=== PATIENT | female | born 1990 | race Hispanic/Latino ===

== ENCOUNTER 2017-07-09 13:01 | Emergency (ER) | payer MEDICAID, OTHER ==
[2017-07-09 13:26] VITALS: BP 110/78; PULSE 74; RESP 20; TEMP 99.2; O2SAT 99
[2017-07-09] MEDS ORDERED: Naproxen 550 mg Tab PO STA (13:33)
--- NOTE | 2017-07-09 13:35 | C.PDOC ---
History Of Present Illness 26 year old female presents to the ED c/o dental pain for the past week. Patient has not made a follow up appointment with the dentist. Patient denies injury, fall, trauma, fever, chills. Time Seen by Provider: 07/09/17 13:17 Chief Complaint (Nursing): Dental Pain History Per: Patient History/Exam Limitations: no limitations Onset/Duration Of Symptoms: Days Current Symptoms Are (Timing): Still Present Quality: Positive for: "Pain" Recent travel outside of the [place]: No Additional History Per: Patient Past Medical History Reviewed: Historical Data, Nursing Documentation, Vital Signs Vital Signs: Last Vital Signs Temp 99.2 F 07/09/17 13:24 Pulse 74 07/09/17 13:24 Resp 20 07/09/17 13:24 BP 110/78 07/09/17 13:24 Pulse Ox 99 07/09/17 13:50 - Medical History PMH: Asthma Denies: Migraine Surgical History: Appendectomy - [facility] Procedures MONITORING NOS (06/29/13) INJECT/INFUSE NEC (05/29/14) MANUAL ASSIST DELIV NEC (06/29/13) Family History: States: Unknown Family Hx - Social History Hx Alcohol Use: No Hx Substance Use: No Review Of Systems Except As Marked, All Systems Reviewed And Found Negative. ENT: Positive for: Mouth Pain. Negative for: Mouth Swelling Physical Exam - Physical Exam Appears: Non-toxic, No Acute Distress Skin: Normal Color, Warm, Dry Head: Atraumatic, Normacephalic Eye(s): bilateral: Normal Inspection Ear(s): Bilateral: Normal Nose: No Discharge Oral Mucosa: Moist Tongue: No Swelling Lips: No Swelling Teeth: Caries (right upper molar) Gingiva: No Swelling, No Tender Throat: Normal, No Erythema, No Exudate Neck: Normal ROM, Supple Neurological/Psych: Oriented x3, Normal Speech Gait: Steady ED Course And Treatment O2 Sat by Pulse Oximetry: 99 (On RA) Pulse Ox Interpretation: Normal Medical Decision Making Medical Decision Making: Plan: * Amoxicillin 500 mg PO * Anaprox 550 mg PO Disposition - Disposition Disposition: HOME/ ROUTINE Disposition Time: 01:00 Condition: STABLE Additional Instructions: follow up with dentist. return to er with worsening symptoms or concerns. Prescriptions: Amoxicillin [Amoxil 500 mg Cap] 500 mg PO TID #21 cap Naproxen [Naprosyn] 500 mg PO BID PRN #14 tablet PRN Reason: Pain, Mild (1-3) Instructions: Tooth Decay, Adult (DC), Dental Pain Forms: [id number] ([place]) - Clinical Impression Clinical Impression: Dental caries - Scribe Statement The provider has reviewed the documentation as recorded by the Scribe Rc Salomon All medical record entries made by the Scribe were at my direction and personally dictated by me. I have reviewed the chart and agree that the record accurately reflects my personal performance of the history, physical exam, medical decision making, and the department course for this patient. I have also personally directed, reviewed, and agree with the discharge instructions and disposition.
--- NOTE | 2017-07-09 13:38 | C.PDOC ---
Time Seen by Provider: 07/09/17 13:17 Chief Complaint (Nursing): Dental Pain Past Medical History Vital Signs: Last Vital Signs Temp 99.2 F 07/09/17 13:24 Pulse 74 07/09/17 13:24 Resp 20 07/09/17 13:24 BP 110/78 07/09/17 13:24 Pulse Ox 99 07/09/17 13:24 - Medical History PMH: Asthma Denies: Migraine Surgical History: Appendectomy - [facility] Procedures MONITORING NOS (06/29/13) INJECT/INFUSE NEC (05/29/14) MANUAL ASSIST DELIV NEC (06/29/13) Family History: States: Unknown Family Hx - Social History Hx Alcohol Use: No Hx Substance Use: No ED Course And Treatment O2 Sat by Pulse Oximetry: 99 Disposition - Disposition Disposition: HOME/ ROUTINE Disposition Time: 13:32 Condition: STABLE Additional Instructions: follow up with dentist. return to er with worsening symptoms or concerns. Prescriptions: Amoxicillin [Amoxil 500 mg Cap] 500 mg PO TID #21 cap Naproxen [Naprosyn] 500 mg PO BID PRN #14 tablet PRN Reason: Pain, Mild (1-3) Instructions: Dental Pain, Tooth Decay, Adult (DC) - Clinical Impression Clinical Impression: Dental caries
[2017-07-09] MEDS ORDERED: Naproxen 550 mg Tab PO ONE (13:39)
== END 2017-07-09 13:43 | disposition home or self-care (01) ==
LOC: C.ER 13:01
DX: K02.9 Dental caries, unspecified (principal)